=== PATIENT | male | born 1995 | race Caucasian/White ===

== ENCOUNTER 2022-10-13 13:46 | Emergency (ER) | payer SELFPAY ==
[~2022-10-13] VITALS: Ht 177.8 cm; Wt 82.0 kg
[2022-10-13 14:04] VITALS: BP 145/82; PULSE 62; RESP 16; TEMP 97.8; O2SAT 98
== END 2022-10-13 14:12 | disposition left against medical advice (07) ==
LOC: ER 13:53
DX: S61.519A Laceration without foreign body of unspecified wrist, initial encounter (principal); X58.XXXA Exposure to other specified factors, initial encounter; Y93.89 Activity, other specified; Y92.89 Other specified places as the place of occurrence of the external cause; Y99.8 Other external cause status
CPT/HCPCS: 99281